=== PATIENT | female | born 1965 | race Two or more races ===

== ENCOUNTER 2018-03-17 12:38 | Emergency (ER) | payer MEDICAID ==
[~2018-03-17] VITALS: Ht 170.2 cm; Wt 90.7 kg
[~2018-03-17 12:38] MED LIST: ARIP2TAB
[2018-03-17 13:55] VITALS: BP 142/95
== END 2018-03-17 14:29 | disposition home or self-care (01) ==
LOC: ER 12:38
DX: M54.5 Low back pain (principal); G89.29 Other chronic pain; F17.210 Nicotine dependence, cigarettes, uncomplicated; I10 Essential (primary) hypertension; Z76.0 Encounter for issue of repeat prescription; Z98.51 Tubal ligation status; Z88.6 Allergy status to analgesic agent

== ENCOUNTER 2019-04-30 12:43 | Emergency (ER) | payer MEDICAID ==
[~2019-04-30] VITALS: Ht 167.6 cm; Wt 40.8 kg
[2019-04-30 13:00] VITALS: BP 149/100
[2019-04-30] MEDS ORDERED: HYDROcodone-ACET 10/325MG TAB PO ONE (15:15)
== END 2019-04-30 15:46 | disposition home or self-care (01) ==
LOC: EDBD 12:43 → ER 12:43
DX: S92.144A Nondisplaced dome fracture of right talus, initial encounter for closed fracture (principal); I10 Essential (primary) hypertension; Z98.51 Tubal ligation status; F17.210 Nicotine dependence, cigarettes, uncomplicated; Z88.6 Allergy status to analgesic agent; X50.1XXA Overexertion from prolonged static or awkward postures, initial encounter; Y93.89 Activity, other specified; Y92.89 Other specified places as the place of occurrence of the external cause; Y99.8 Other external cause status
CPT/HCPCS: 29515; 73610; 73630